=== PATIENT | female | born 1945 | race Caucasian/White ===

== ENCOUNTER → 2019-12-14 | Outpatient (CLI) | payer MEDICARE ==
[~2019-12-14] MED LIST: GABA-585 PO; IBUP-1060 PO; IOHEXOL 300 MG/ML 100ML VIAL. IV ONE; LEVO75TA5 PO; OLME40TA12 PO
--- NOTE | 2019-12-14 11:40 | KCIC ---
MRI Lumbar Spine without contrast History: Lumbar pain, low back pain, foot pain Technique: Multiplanar, multi sequential noncontrast MR imaging was performed of the lumbar spine. Comparison: None Findings: Lumbar vertebral body stature and AP alignment are maintained. There is advanced L5-S1 degenerative disc disease and mild disc desiccation of more superior levels and also of visualized inferior thoracic line. Conus terminates at the inferior aspect of L1. There is minimal edema of the inferior T12 endplate and also of the anterior corners at T11-12 likely reactive/degenerative in etiology. T12-L1: There is negligible protrusion. Neural foramina and spinal canal are adequate. There is anterior annular tear. L1-L2: Neural foramina and spinal canal are adequate. L2-L3: Neural foramina and spinal canal are adequate. L3-L4: Neural foramina and spinal canal are adequate. L4-L5: There is very minimal posterior bulge. There is mild facet degenerative change and buckling of the ligamentum flavum. Neural foramina are adequate. There is very mild narrowing of the far lateral recesses from posteriorly. L5-S1: There is minimal disc osteophyte complex. Spinal canal is overall adequate. There is mild neural foramina compromise bilaterally. Impression: 1. There is no significant lumbar spinal stenosis, very mild narrowing of the far lateral recesses at L4-5 from posteriorly. There is advanced L5-S1 degenerative disc disease. There is mild bilateral L5-S1 neural foramina compromise. Electronically signed by: Benjamin Ingram MD (12/14/2019 11:36 AM) [facility]
--- NOTE | 2019-12-14 15:52 | KCIC ---
Examination: CT ANGIOGRAPHY CHEST History: Dyspnea on exertion, elevated d-dimer Comparison/Correlation: None Findings: Axial images of chest were obtained following IV contrast: To pulmonary arteriography protocol. Sagittal and coronal reformatted images were provided. Excellent partial opacification of the pulmonary arteries and aorta is noted. Maximum intensity projection images were provided. Pulmonary arterial vasculature is normal with no thromboembolic disease. Thoracic aorta is unremarkable. No enlarged thoracic lymph nodes. Pulmonary hyperinflation noted. No infiltrate or pleural effusion. No pneumothorax. Mild bilateral lower lobe bronchiectasis. No significant bleb or bullous involvement of the lung radford. Bony structures are unremarkable. Small hiatal hernia is present. Right hepatic dome 0.7 cm diameter low-attenuation lesion cyst is present. Aorta is unremarkable for the patient's age. Bony structures are unremarkable for the patient's age. Degenerative space narrowing of the partially visualized lower cervical spine and the upper thoracic spine seen. Impression: No pulmonary arterial thromboembolic disease. No infiltrate. Mild bilateral lower lobe bronchiectasis. Pulmonary hyperinflation which is suggestive of COPD. Small hiatal hernia. PQRS Compliance Statement: One or more of the following individualized dose reduction techniques were utilized for this examination: 1. Automated exposure control 2. Adjustment of the mA and/or kV according to patient size 3. Use of iterative reconstruction technique Electronically signed by: Arcadio Diane MD (12/14/2019 3:49 PM) [facility]
== END | disposition home or self-care (01) ==
LOC: KCIC MRI 10:21
PROVIDERS: ATTEND Physician Assistant Medical
DX: M51.37 Other intervertebral disc degeneration, lumbosacral region (principal); M48.061 Spinal stenosis, lumbar region without neurogenic claudication; M51.25 Other intervertebral disc displacement, thoracolumbar region; M25.78 Osteophyte, vertebrae; J47.9 Bronchiectasis, uncomplicated; K44.9 Diaphragmatic hernia without obstruction or gangrene; K76.89 Other specified diseases of liver; M48.03 Spinal stenosis, cervicothoracic region
CPT/HCPCS: 71275; 72148; Q9967